=== PATIENT | male | born 1990 | race African-American/Black ===

== ENCOUNTER → 2017-10-05 | Emergency (ER) | payer OTHER ==
[~2017-10-05] MED LIST: AMOX1TAB12 PO; INTESTINEX680 MG PO; NASONEX17 GM NS; ZYRTEC10 MG PO
== END | disposition left against medical advice (07) ==
LOC: ER 05:38
DX: Z53.20 Procedure and treatment not carried out because of patient's decision for unspecified reasons (principal)

== ENCOUNTER 2018-10-09 00:55 | Emergency (ER) | payer OTHER ==
[~2018-10-09] VITALS: Ht 170.2 cm; Wt 521.6 kg
[2018-10-09] MEDS ORDERED: KETO10TA2 PO (04:52)
[2018-10-09] MEDS ORDERED: CEFUROXIME500 MG PO (04:52)
== END 2018-10-09 05:04 | disposition home or self-care (01) ==
LOC: ER 00:55
DX: S91.332A Puncture wound without foreign body, left foot, initial encounter (principal); W26.8XXA Contact with other sharp object(s), not elsewhere classified, initial encounter; Y93.01 Activity, walking, marching and hiking; Y92.098 Other place in other non-institutional residence as the place of occurrence of the external cause; Y99.8 Other external cause status

== ENCOUNTER 2023-04-16 01:34 | Emergency (ER) | payer OTHER ==
[~2023-04-16] VITALS: Ht 170.2 cm; Wt 71.7 kg
[~2023-04-16 01:34] MED LIST changes: +CEFUROXIME500 MG PO; +KETO10TA2 PO
[2023-04-16] MEDS ORDERED: DOLOGESIC-DF 51 EACH PO (05:29)
== END 2023-04-16 05:36 ==
LOC: ER 01:34
DX: R53.81 Other malaise (principal); R53.83 Other fatigue; B34.9 Viral infection, unspecified; Z20.822 Contact with and (suspected) exposure to COVID-19